=== PATIENT | male | born 2000 | race African-American/Black ===

== ENCOUNTER 2021-01-14 14:48 | Emergency (ER) | payer OTHER ==
[~2021-01-14] VITALS: Ht 182.9 cm; Wt 77.3 kg
[2021-01-14] MEDS ORDERED: LIDOCAINE 1% MDV 20ML VIAL IM ONE (18:00)
--- NOTE | 2021-01-14 18:21 | REP ---
INDICATION: laceration foot/FB. COMPARISON: None. TECHNIQUE: Five views of the left forefoot are provided. FINDINGS: Five views of the left forefoot demonstrate no evidence of fracture or subluxation. There is however soft tissue swelling at the ball of the foot adjacent to the 2nd proximal phalanx. In the swollen irregular soft tissues, there is a irregularly marginated 10 mm somewhat linear density consistent with opaque foreign material. There is no evidence of intra-articular air.. . . IMPRESSION: No fracture seen. Opaque foreign material in the volar soft tissues of the forefoot at the level of the 2nd proximal phalanx.. <Electronically signed by Denis Escudero > 01/14/21 [id number]
--- NOTE | 2021-01-14 18:58 | REP ---
INDICATION: fb removed. COMPARISON: Comparison study is from 5:54 p.m. before foreign body removal. TECHNIQUE: Four views of the left forefoot are repeated. FINDINGS: Four views of the left forefoot demonstrate that the previously noted 1 cm foreign material remains in place in the volar soft tissues essentially unchanged.. No fracture or subluxation is seen. . IMPRESSION: Foreign material persists in the volar soft tissues of the forefoot.. <Electronically signed by Denis Escudero > 01/14/21 [id number]
[2021-01-14] MEDS ORDERED: CIPR-249 PO (20:45)
[2021-01-14] MEDS ORDERED: CIPROFLOXACIN 500MG TABLET PO ONE (20:50)
[2021-01-14 21:10] VITALS: BP 122/69
== END 2021-01-14 21:19 | disposition home or self-care (01) ==
LOC: M ED 14:48
DX: S91.322A Laceration with foreign body, left foot, initial encounter (principal); W22.8XXA Striking against or struck by other objects, initial encounter; Y92.89 Other specified places as the place of occurrence of the external cause; Y93.9 Activity, unspecified; Y99.1 Military activity

== ENCOUNTER 2023-01-30 16:55 | Emergency (ER) | payer OTHER ==
[~2023-01-30] VITALS: Ht 180.3 cm; Wt 87.0 kg
[~2023-01-30 16:55] MED LIST: CIPR-249 PO
[2023-01-30 16:56] VITALS: BP 118/71; TEMP 98.4; O2SAT 100
[2023-01-30] MEDS ORDERED: IBUPROFEN 600MG TAB PO ONE (21:20)
[2023-01-30] MEDS ORDERED: METH-1164 PO (21:31)
[2023-01-30] MEDS ORDERED: IBUP-1022 PO (21:31)
== END 2023-01-30 21:39 | disposition home or self-care (01) ==
LOC: M ED 16:55
DX: S29.012A Strain of muscle and tendon of back wall of thorax, initial encounter (principal)